=== PATIENT | female | born 1990 | race Caucasian/White ===

== ENCOUNTER 2016-09-28 20:09 | Emergency (ER) | payer SELFPAY ==
--- NOTE | 2016-09-28 20:27 | ED CLINICAL REPORT ---
Clinical Report - Physicians/Mid Levels [facility] [address] [place] [address] 09/28/2016 20:10 Patient: JAILYN ORTA Time Seen: 2029Sep 28 2016. Arrived- By private vehicle. Historian- patient. HISTORY OF PRESENT ILLNESS Chief Complaint: Injury to the right and left hand. The injury happened 7 days. ( Patient reports a rash off and on over the last 7 days, wears gloves, and is unsure if the rash is from such, has has history of similar, does wear latex at work. Rash worsens massage. Hasn't taken any Benadryl anything [id number]. Burn sensation). REVIEW OF SYSTEMS No skin laceration. All systems otherwise negative, except as recorded above. PAST HISTORY The patient's dominant hand is the right. She has not had a prior injury to the same area. SOCIAL HISTORY Never smoker. ADDITIONAL NOTES The nursing notes have been reviewed. PHYSICAL EXAM Vital Signs: 09/28/2016 20:26 BP: 135/88. HR: 102. RR: 16. O2 saturation: 100%. Temp: 97.8 F. Pain level now: 5/10. Appearance: Alert. No acute distress. Head: Head atraumatic. CVS: Normal heart rate and rhythm. Heart sounds normal. Respiratory: No respiratory distress. Breath sounds normal. Skin: Skin warm. Extremities: (dorsal small area of erythema, no swelling, overlying proximal aspect . full rom, no interdigit rash.). No wrist injury. Neuro, Vascular and Tendons: Vascular status intact. Motor intact. Neuro: Oriented X 3. PROGRESS AND PROCEDURES Course of Care: Contact dermatitis, less likely scabies. Pt stable. Pt to f/u outpatient. No signs of infectious process. Full rom. Patient is stable. Patient/family counseled. Disposition: Discharged. CLINICAL IMPRESSION Allergic and irritative contact dermatitis (b/l dorsal hands). INSTRUCTIONS Return to work tomorrow. (take antihistamine such as benadryl/ zyrtec/ claritin as needed avoid gloves, but otherwise may work). Prescription Medications: Hydrocortisone 0.5% cream: apply to affected areas three times daily for 1 week, as needed for itching, until symptoms improve. Dispense thirty (30) grams. No refills. Substitution is permissible. OTC Medications: Take Benadryl according to label instructions. Available over the counter. (50 mg po q 6 hours, x 15) (Electronically signed by Palak Avendano P.A.-C 09/28/2016 21:03)
--- NOTE | 2016-09-28 20:27 | ED CLINICAL REPORT ---
Clinical Report - Physicians/Mid Levels [facility] [address] [place] [address] 09/28/2016 20:10 Patient: JAILYN ORTA Time Seen: 2029Sep 28 2016. Arrived- By private vehicle. Historian- patient. HISTORY OF PRESENT ILLNESS Chief Complaint: Injury to the right and left hand. The injury happened 7 days. ( Patient reports a rash off and on over the last 7 days, wears gloves, and is unsure if the rash is from such, has has history of similar, does wear latex at work. Rash worsens massage. Hasn't taken any Benadryl anything [id number]. Burn sensation). REVIEW OF SYSTEMS No skin laceration. All systems otherwise negative, except as recorded above. PAST HISTORY The patient's dominant hand is the right. She has not had a prior injury to the same area. SOCIAL HISTORY Never smoker. ADDITIONAL NOTES The nursing notes have been reviewed. PHYSICAL EXAM Vital Signs: 09/28/2016 20:26 BP: 135/88. HR: 102. RR: 16. O2 saturation: 100%. Temp: 97.8 F. Pain level now: 5/10. Appearance: Alert. No acute distress. Head: Head atraumatic. CVS: Normal heart rate and rhythm. Heart sounds normal. Respiratory: No respiratory distress. Breath sounds normal. Skin: Skin warm. Extremities: (dorsal small area of erythema, no swelling, overlying proximal aspect . full rom, no interdigit rash.). No wrist injury. Neuro, Vascular and Tendons: Vascular status intact. Motor intact. Neuro: Oriented X 3. PROGRESS AND PROCEDURES Course of Care: Contact dermatitis, less likely scabies. Pt stable. Pt to f/u outpatient. No signs of infectious process. Full rom. Patient is stable. Patient/family counseled. Disposition: Discharged. CLINICAL IMPRESSION Allergic and irritative contact dermatitis (b/l dorsal hands). INSTRUCTIONS Return to work tomorrow. (take antihistamine such as benadryl/ zyrtec/ claritin as needed avoid gloves, but otherwise may work). Prescription Medications: Hydrocortisone 0.5% cream: apply to affected areas three times daily for 1 week, as needed for itching, until symptoms improve. Dispense thirty (30) grams. No refills. Substitution is permissible. OTC Medications: Take Benadryl according to label instructions. Available over the counter. (50 mg po q 6 hours, x 15) (Electronically signed by Palak Avendano P.A.-C 09/28/2016 21:03)
--- NOTE | 2016-09-28 21:03 | ED MAR SUMMARY ---
..... Medication Administration Record [facility] [address] [place], [place] [id number] Patient: JAILYN ORTA Robert Visit ID: [id number] 26y, F Weight: 88.4 kg Height/Length: 72 in BMI: 26.5 ALLERGIES: No Known Drug Allergy
--- NOTE | 2016-09-28 21:03 | ED MAR SUMMARY ---
..... Medication Administration Record [facility] [address] [place], [place] [id number] Patient: JAILYN ORTA Robert Visit ID: [id number] 26y, F Weight: 88.4 kg Height/Length: 72 in BMI: 26.5 ALLERGIES: No Known Drug Allergy
--- NOTE | 2016-09-28 21:03 | ED DISCHARGE INSTRUCTIONS ---
Patient: JAILYN ORTA General Instructions [facility] VisitID: [id number] [place] [address] 26y, F Registration Date/Time: 09/28/2016 Allergic and irritative contact dermatitis (b/l dorsal hands). INSTRUCTIONS Return to work tomorrow. (take antihistamine such as benadryl/ zyrtec/ claritin as needed avoid gloves, but otherwise may work). Prescription Medications: Hydrocortisone 0.5% cream: apply to affected areas three times daily for 1 week, as needed for itching, until symptoms improve. Dispense thirty (30) grams. No refills. Substitution is permissible. OTC Medications: Take Benadryl according to label instructions. Available over the counter. (50 mg po q 6 hours, x 15) ADDITIONAL INFORMATION Dermatitis (Non-Specific) Dermatitis is an inflammation of the skin. The exact cause of your rash is not certain. However, this rash does not appear to be an infection or contagious illness. Taking care of the rash at home should help relieve your symptoms. Home Care: Keep the areas of rash clean by washing it daily. This also helps to keep the skin moist. Use a neutral pH soap such as Dove or Lever 2000. Apply a moisturizing lotion after bathing to prevent dry skin. Avoid skin irritants (wool or silk clothing, grease, oils, some medicines, harsh soaps, and detergents). Wear absorbent, soft fabrics next to the skin rather than rough or scratchy materials. Unless another medicine was prescribed, you may use Hydrocortisone cream (which you can get without a prescription) to reduce the inflammation. Follow Up: Make an appointment with your doctor in the next 1 to 2 weeks if your symptoms do not improve with the above measures. Get Prompt Medical Attention if any of the following occur: Increasing area of redness or pain in the skin Yellow crusts or drainage from the rash Joint pain New rash that appears in other areas of the body Fever of 100.4F (38C) or higher, or as directed by your healthcare provider You have been given the following additional information: Dermatitis, Non-Specific Return to work tomorrow. (Electronically signed by Palak Avendano P.A.-C 09/28/2016 21:03)
--- NOTE | 2016-09-28 21:03 | ED DISCHARGE INSTRUCTIONS ---
Patient: JAILYN ORTA General Instructions [facility] VisitID: [id number] [place] [address] 26y, F Registration Date/Time: 09/28/2016 Allergic and irritative contact dermatitis (b/l dorsal hands). INSTRUCTIONS Return to work tomorrow. (take antihistamine such as benadryl/ zyrtec/ claritin as needed avoid gloves, but otherwise may work). Prescription Medications: Hydrocortisone 0.5% cream: apply to affected areas three times daily for 1 week, as needed for itching, until symptoms improve. Dispense thirty (30) grams. No refills. Substitution is permissible. OTC Medications: Take Benadryl according to label instructions. Available over the counter. (50 mg po q 6 hours, x 15) ADDITIONAL INFORMATION Dermatitis (Non-Specific) Dermatitis is an inflammation of the skin. The exact cause of your rash is not certain. However, this rash does not appear to be an infection or contagious illness. Taking care of the rash at home should help relieve your symptoms. Home Care: Keep the areas of rash clean by washing it daily. This also helps to keep the skin moist. Use a neutral pH soap such as Dove or Lever 2000. Apply a moisturizing lotion after bathing to prevent dry skin. Avoid skin irritants (wool or silk clothing, grease, oils, some medicines, harsh soaps, and detergents). Wear absorbent, soft fabrics next to the skin rather than rough or scratchy materials. Unless another medicine was prescribed, you may use Hydrocortisone cream (which you can get without a prescription) to reduce the inflammation. Follow Up: Make an appointment with your doctor in the next 1 to 2 weeks if your symptoms do not improve with the above measures. Get Prompt Medical Attention if any of the following occur: Increasing area of redness or pain in the skin Yellow crusts or drainage from the rash Joint pain New rash that appears in other areas of the body Fever of 100.4F (38C) or higher, or as directed by your healthcare provider You have been given the following additional information: Dermatitis, Non-Specific Return to work tomorrow. (Electronically signed by Palak Avendano P.A.-C 09/28/2016 21:03)
--- NOTE | 2016-09-28 21:03 | ED MED RECONCILIATION SUMMARY ---
Patient: JAILYN ORTA Medication Reconciliation Report [facility] VisitID: [id number] [place] [address] 26y, F Registration Date/Time: 09/28/2016 Weight: 88.4 kg Height/Length: 72 in. BMI: 26.5 ALLERGIES: No Known Drug Allergy The patient's Home Medications are listed below: NONE. The source(s) of the original Home Medication information: Not obtained. The following Medications were given to the patient in the Emergency Department: None. The following Medications were prescribed to the patient: Take Benadryl according to label instructions. Available over the counter.(50 mg po q 6 hours, x 15) -- Palak Avendano, P.A.-C Hydrocortisone 0.5% cream: apply to affected areas three times daily for 1 week, as needed for itching, until symptoms improve. Dispense thirty (30) grams. No refills. Substitution is permissible. -- Palak Avendano, P.A.-C
--- NOTE | 2016-09-28 21:03 | ED NURSING NOTES ---
Clinical Report - Nurses Located Within [facility] [address] [place] [address] 09/28/2016 20:10 Patient: JAILYN ORTA TRIAGE Triage time 2025 PM. Chief Complaint: SKIN RASH. Alert. No acute distress. --20:31 Chadwick Black R.N. 20:26 09/28/16. BP: 135/88. HR: 102. RR: 16. O2 saturation: 100%. Temp: 97.8 F (oral). Pain level now: 01/06. --20:31 Chadwick Black R.N. Weight: 88.4 kg stated. Height/Length: 72 inches Per Patient. BMI: 26.5. --20:30 Chadwick Black R.N. Medications None. --20:29 Chadwick Black R.N. Allergies No Known Drug Allergy. --20:29 Chadwick Black R.N. History Arrived by private vehicle. Historian: patient. Accompanied by family. Reported as located on the right hand and left hand. It is described as itchy, burning and painful. ( Patient presents to the ED with symptoms of a rash to bilateral hands. Patient states that she does not know what substance she may be causing the reaction. Patient states that she wears vinyl gloves at [employer] and wears latex gloves at [place].). PAST MEDICAL HX: Immunizations: up-to-date. Last normal menstrual period was 3 weeks ago. Denies current . SOCIAL HX: Never smoker. Occasional alcohol use. History of drug use. (no). FALL RISK ASSESSMENT: Fall risk assessment completed. No fall risk identified. NUTRITIONAL RISK ASSESSMENT: The nutritional risk assessment revealed no deficiencies. FUNCTIONAL ASSESSMENT: Functional assessment: no impairments noted. LEARNING NEEDS ASSESSMENT: The learning needs assessment revealed no barriers. SKIN INTEGRITY ASSESSMENT: Skin integrity risk assessment completed. No skin integrity risk identified. --20:31 Chadwick Black R.N. PROBLEMS: no known problems. ADDITIONAL SURGERIES: no known surgeries. Interventions ID band on patient. To treatment room. --20:31 Chadwick Black R.N. PHYSICAL ASSESSMENT Ambulatory to room. GENERAL / NEURO / PSYCH: Alert. The patient does not appear to be in acute distress. Oriented X 4. HEENT: Pupils equal, round and reactive to light. RESPIRATORY: Respirations not labored. Breath sounds within normal limits. CVS: Capillary refill less than 2 seconds. Pulses within normal limits. GI / : Abdomen nontender. SKIN: Skin is warm, dry and non-tender. Skin rash on the right hand and left hand. Urticaria present. Normal skin turgor. --20:33 Chadwick Black R.N. NURSING PROGRESS NOTES Call light placed in reach. Side rails up x 1. Bed placed in lowest position. Brakes of bed on. --20:37 Chadwick Black R.N. DISPOSITION / DISCHARGE Condition at departure: improved. The goals identified in the patient's plan of care were met. No learning barriers present. Reviewed medication(s) side effects, precautions, dosing and course information. Prescription(s) given to the patient. Patient verbalized understanding. Written instructions provided in Indonesian. The patient was discharged home and accompanied by spouse. She left the Emergency Department ambulatory and via private vehicle. Spouse driving. FALL RISK ASSESSMENT: Fall risk assessment completed. No fall risk identified. --20:37 Chadwick Black R.N. Departure time: 2036 PM. --20:37 Chadwick Black R.N. Locked/Released at 09/28/2016 20:38 by Chadwick Black R.N.
--- NOTE | 2016-09-28 21:03 | ED NURSING NOTES ---
Clinical Report - Nurses [facility] [address] [place] [address] 09/28/2016 20:10 Patient: JAILYN ORTA TRIAGE Triage time 2025 PM. Chief Complaint: SKIN RASH. Alert. No acute distress. --20:31 Chadwick Black R.N. 20:26 09/28/16. BP: 135/88. HR: 102. RR: 16. O2 saturation: 100%. Temp: 97.8 F (oral). Pain level now: 01/06. --20:31 Chadwick Black R.N. Weight: 88.4 kg stated. Height/Length: 72 inches Per Patient. BMI: 26.5. --20:30 Chadwick Black R.N. Medications None. --20:29 Chadwick Black R.N. Allergies No Known Drug Allergy. --20:29 Chadwick Black R.N. History Arrived by private vehicle. Historian: patient. Accompanied by family. Reported as located on the right hand and left hand. It is described as itchy, burning and painful. ( Patient presents to the ED with symptoms of a rash to bilateral hands. Patient states that she does not know what substance she may be causing the reaction. Patient states that she wears vinyl gloves at [facility] [employer] [place] and wears latex gloves at [place].). PAST MEDICAL HX: Immunizations: up-to-date. Last normal menstrual period was 3 weeks ago. Denies current . SOCIAL HX: Never smoker. Occasional alcohol use. History of drug use. (no). FALL RISK ASSESSMENT: Fall risk assessment completed. No fall risk identified. NUTRITIONAL RISK ASSESSMENT: The nutritional risk assessment revealed no deficiencies. FUNCTIONAL ASSESSMENT: Functional assessment: no impairments noted. LEARNING NEEDS ASSESSMENT: The learning needs assessment revealed no barriers. SKIN INTEGRITY ASSESSMENT: Skin integrity risk assessment completed. No skin integrity risk identified. --20:31 Chadwick Black R.N. PROBLEMS: no known problems. ADDITIONAL SURGERIES: no known surgeries. Interventions ID band on patient. To treatment room. --20:31 Chadwick Balck R.N. PHYSICAL ASSESSMENT Ambulatory to room. GENERAL / NEURO / PSYCH: Alert. The patient does not appear to be in acute distress. Oriented X 4. HEENT: Pupils equal, round and reactive to light. RESPIRATORY: Respirations not labored. Breath sounds within normal limits. CVS: Capillary refill less than 2 seconds. Pulses within normal limits. GI / : Abdomen nontender. SKIN: Skin is warm, dry and non-tender. Skin rash on the right hand and left hand. Urticaria present. Normal skin turgor. --20:33 Chadwick Black R.N. NURSING PROGRESS NOTES Call light placed in reach. Side rails up x 1. Bed placed in lowest position. Brakes of bed on. --20:37 Chadwick Black R.N. DISPOSITION / DISCHARGE Condition at departure: improved. The goals identified in the patient's plan of care were met. No learning barriers present. Reviewed medication(s) side effects, precautions, dosing and course information. Prescription(s) given to the patient. Patient verbalized understanding. Written instructions provided in Uzbek. The patient was discharged home and accompanied by spouse. She left the Emergency Department ambulatory and via private vehicle. Spouse driving. FALL RISK ASSESSMENT: Fall risk assessment completed. No fall risk identified. --20:37 Chadwick Black R.N. Departure time: 2036 PM. --20:37 Chadwick Black R.N. Locked/Released at 09/28/2016 20:38 by Chadwick Black R.N.
--- NOTE | 2016-09-28 21:03 | ED MED RECONCILIATION SUMMARY ---
Patient: JAILYN ORTA Medication Reconciliation Report [facility] VisitID: [id number] [place] [address] 26y, F Registration Date/Time: 09/28/2016 Weight: 88.4 kg Height/Length: 72 in. BMI: 26.5 ALLERGIES: No Known Drug Allergy The patient's Home Medications are listed below: NONE. The source(s) of the original Home Medication information: Not obtained. The following Medications were given to the patient in the Emergency Department: None. The following Medications were prescribed to the patient: Take Benadryl according to label instructions. Available over the counter.(50 mg po q 6 hours, x 15) -- Palak Avendano, P.A.-C Hydrocortisone 0.5% cream: apply to affected areas three times daily for 1 week, as needed for itching, until symptoms improve. Dispense thirty (30) grams. No refills. Substitution is permissible. -- Palak Avendano, P.A.-C
== END 2016-09-28 20:36 | disposition home or self-care (01) ==
LOC: ED SRH 20:09
DX: L23.9 Allergic contact dermatitis, unspecified cause (principal); L24.9 Irritant contact dermatitis, unspecified cause

== ENCOUNTER 2016-10-16 18:27 | Emergency (ER) | payer SELFPAY ==
--- NOTE | 2016-10-16 19:10 | ED ORDER SUMMARY ---
..... Patient: JAILYN ORTA [facility] VisitID: [id number] [address] [place] [address] 26y, F Registration Date/Time: 10/16/2016 ORDER SHEET Weight: 88.4 kg (stated) Allergies: "a cough suppressant" GENERAL ORDERS: MEDICATION ORDERS: Toradol IM 60 mg (NOW) (19:03 10/16/2016 JCoates) (19:14 LSullivan R.N.) Lortab PO 5-325 mg (NOW) (19:03 10/16/2016 JCoates) (19:14 LSullivan R.N.) IV FLUIDS: ORDER SHEET NOTES: [Electronically signed by Jeromy Slater (00:25 10/17/2016)] [Electronically signed by Bo Jc R.N. (03:37 10/17/2016)] [Electronically locked/signed by Bo Jc R.N. (03:37 10/17/2016)]
--- NOTE | 2016-10-16 19:10 | ED ORDER SUMMARY ---
..... Patient: JAILYN ROTA OrderSheet [facility] VisitID: [id number] [address] [place] [place] [address] 26y, F Registration Date/Time: 10/16/2016 ORDER SHEET Weight: 88.4 kg (stated) Allergies: "a cough suppressant" GENERAL ORDERS: MEDICATION ORDERS: Toradol IM 60 mg (NOW) (19:03 10/16/2016 JCoates) (19:14 LSullivan R.N.) Lortab PO 5-325 mg (NOW) (19:03 10/16/2016 JCoates) (19:14 LSullivan R.N.) IV FLUIDS: ORDER SHEET NOTES: [Electronically signed by Jeromy Slater (00:25 10/17/2016)] [Electronically signed by Bo Jc R.N. (03:37 10/17/2016)] [Electronically locked/signed by Bo Jc R.N. (03:37 10/17/2016)]
--- NOTE | 2016-10-16 19:10 | ED NURSING NOTES ---
Clinical Report - Nurses [facility] [address] [place] [address] 10/16/2016 18:27 Patient: JAILYN ORTA TRIAGE Triage time 18:34. Acuity: LEVEL 4. 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 Pt states she did not pass out at work.). Alert. No acute distress. --18:41 Leeann Lutz R.N. 18:34 10/16/16. BP: 111/79. HR: 76. RR: 18. O2 saturation: 99%. Temp: 98.2 F. Pain level now: 04/08. --18:41 Leeann Lutz R.N. Weight: 88.4 kg stated. Height/Length: 72 inches Per Patient. BMI: 26.5. --18:36 Leeann Lutz R.N. Medications None. --18:40 Leeann Lutz R.N. Allergies "a cough suppressant". --18:41 Leeann Lutz R.N. History Arrived by EMS, and (A65). Historian: EMS and patient. Primary physician (none). This started today. 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 PAST MEDICAL HX: Immunizations: up-to-date. Last normal menstrual period- continuous spotting, hasn't stopped for a long time. Denies current . SOCIAL HX: Never smoker. Occasional alcohol use. No drug use. SELF HARM ASSESSMENT: A self harm assessment was performed. The patient answered "no" to the question "Do you have thoughts of harming or killing yourself?". NUTRITIONAL RISK ASSESSMENT: The nutritional risk assessment revealed no deficiencies. FUNCTIONAL ASSESSMENT: Functional assessment: no impairments noted. ABUSE ASSESSMENT: Abuse assessment: ("YES") The patient was asked "Do you feel safe in your home?". --18:41 Leeann Lutz R.N. PROBLEMS: Contact Dermatitis. --18:38 Leeann Lutz R.N. Hypoglycemia. Anemia. --18:39 Leeann Lutz R.N. ADDITIONAL SURGERIES: Dental Surgery. --18:39 Leeann Lutz R.N. Interventions ID band on patient. To room. --18:41 Leeann Lutz R.N. PHYSICAL ASSESSMENT 18:41 10/16/16. GENERAL / NEURO / PSYCH: Alert. Oriented X 4. Appears in no acute distress. --18:41 Leeann uLtz R.N. NURSING PROGRESS NOTES 18:41 10/16/16. Patient identifiers checked. Call light placed in reach. Bed placed in lowest position. Brakes of bed on. Patient ready for evaluation- chart flagged. --18:41 Leeann Lutz R.N. 18:42 10/16/16. ( Pt states she has not had vomiting for 2 weeks.). --18:42 Leeann Lutz R.N. 19:14 10/16/2016 Toradol (Ketorolac Tromethamine) IM 60 mg given. Given in the right gluteus latoya. Allergies verified and confirmed 5 rights. --19:14 Leeann Lutz R.N. 19:14 10/16/2016 Lortab (Hydrocodone-APAP) PO 5/325 mg Tablets 1 tab given. Confirmed 5 rights. --19:14 Leeann Lutz R.N. DISPOSITION / DISCHARGE Departure time: 19:20. Condition at departure: improved. ( Vital signs deferred.). No learning barriers present. Discharge instructions provided and reviewed with the patient. Reviewed medication(s). Reviewed referral to family practice for followup (Pt instructed to find a PCP to get established with.). Verbalized understanding. Written instructions provided. The patient was discharged home and accompanied by Pt to call for a ride in [facility]. She left the Emergency Department ambulatory and via private vehicle. --19:20 Leeann Lutz R.N. Locked/Released at 10/17/2016 3:37 by Bo Jc R.N.
--- NOTE | 2016-10-16 19:10 | ED CLINICAL REPORT ---
Clinical Report - Physicians/Mid Levels [facility] [address] [place] [address] 10/16/2016 18:27 Patient: JAILYN ORTA Time Seen: 19:02 Oct 16 2016. Arrived- By private vehicle. Historian- patient. HISTORY OF PRESENT ILLNESS Chief Complaint: COUGH, SORE THROAT, SINUS PAIN and FEVER. This started about 3 days ago But worse today when she went to work. The illness is described as moderate. The patient has had a cough, a sore throat, fever, chills and muscle aches. She has had a nasal discharge. No difficulty breathing. (Patient says she is not sure why she is here as she doesn't feel that sick. She came in because her boss called the EMS.). Additional history - The patient has had contact with a sick individual. Similar symptoms previously: None. Recent medical care: Not recently seen/assessed. REVIEW OF SYSTEMS The patient has had a headache. No nausea, vomiting, diarrhea, pedal edema or difficulty with urination. No skin rash. All systems otherwise negative, except as recorded above. PAST HISTORY See nurses notes. No history of heart disease or lung disease. SOCIAL HISTORY Never smoker. No drug use. ADDITIONAL NOTES The nursing notes have been reviewed. PHYSICAL EXAM Appearance: Alert. No acute distress. Eyes: Pupils equal, round and reactive to light. Eyes normal inspection. ENT: Ears normal. Nose normal. Pharynx normal. Uvula midline. Neck: Normal inspection. Neck supple. CVS: Normal heart rate and rhythm. Heart sounds normal. Respiratory: No respiratory distress. Breath sounds normal. Back: Normal inspection. No CVA tenderness. Skin: Skin warm and dry. Normal skin color. No rash. Normal skin turgor. Extremities: Extremities exhibit normal ROM. No lower extremity edema. Neuro: Oriented X 3. No motor deficit. No sensory deficit. PROGRESS AND PROCEDURES Course of Care: Patient has a very benign exam. We'll treat for viral URI/influenza. She says her symptoms only recently started although she was sick several weeks ago and had a period of wellness between.. Disposition: Discharged in good condition. CLINICAL IMPRESSION Acute viral upper respiratory infection. Tension-type headache. INSTRUCTIONS Take Tylenol (Acetaminophen) or Motrin (Ibuprofen) as needed for fever control. Take medication according to label instructions. Rest. Do not work for three days. Drink plenty of fluids. No dietary restrictions. Warnings: SEDATIVE MEDICATION: You were given sedative medication during your visit. Do not drive or operate dangerous machinery for 12 hours. GENERAL WARNINGS: Return or contact your physician immediately if your condition worsens or changes unexpectedly, if not improving as expected, or if other problems arise. Specifically return if vomiting or fever greater than 102 degrees F and not controlled. Prescription Medications: Tylenol with Codeine Tylenol #3 (30 mg / 300 mg) : take 1 tablet orally. Dispense five (5). No refill. Substitution is permissible. (PO at HS PRN for cough and body aches.) OTC Medications: Motrin IB 200 mg (available over the counter): take 3 orally every 6 hours as needed for pain Mucinex (available over the counter): 600 mg tablet: take 1 tablet orally every 12 hours for 7 days. Dispense fifteen (15). No refill. Follow-up: Follow up with your doctor in four if not better. Understanding of the discharge instructions verbalized by patient. (Electronically signed by Jeromy Slater, 10/17/2016 0:25)
--- NOTE | 2016-10-16 19:10 | ED NURSING NOTES ---
Clinical Report - Nurses [facility] [address] [place] [address] 10/16/2016 18:27 Patient: JAILYN ORTA TRIAGE Triage time 18:34. Acuity: LEVEL 4. 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 Pt states she did not pass out at work.). Alert. No acute distress. --18:41 Leeann Lutz R.N. 18:34 10/16/16. BP: 111/79. HR: 76. RR: 18. O2 saturation: 99%. Temp: 98.2 F. Pain level now: 04/08. --18:41 Leeann Lutz R.N. Weight: 88.4 kg stated. Height/Length: 72 inches Per Patient. BMI: 26.5. --18:36 Leeann Lutz R.N. Medications None. --18:40 Leeann Lutz R.N. Allergies "a cough suppressant". --18:41 Leeann Lutz R.N. History Arrived by EMS, and (A65). Historian: EMS and patient. Primary physician (none). This started today. Treatment STOGY MAKER: (Mucinex and Dayquil at 11am). PAST MEDICAL HX: Immunizations: up-to-date. Last normal menstrual period- continuous spotting, hasn't stopped for a long time. Denies current . SOCIAL HX: Never smoker. Occasional alcohol use. No drug use. SELF HARM ASSESSMENT: A self harm assessment was performed. The patient answered "no" to the question "Do you have thoughts of harming or killing yourself?". NUTRITIONAL RISK ASSESSMENT: The nutritional risk assessment revealed no deficiencies. FUNCTIONAL ASSESSMENT: Functional assessment: no impairments noted. ABUSE ASSESSMENT: Abuse assessment: ("YES") The patient was asked "Do you feel safe in your home?". --18:41 Leeann Lutz R.N. PROBLEMS: Contact Dermatitis. --18:38 Leeann Lutz R.N. Hypoglycemia. Anemia. --18:39 Leeann Lutz R.N. ADDITIONAL SURGERIES: Dental Surgery. --18:39 Leeann Lutz R.N. Interventions ID band on patient. To room. --18:41 Leeann Lutz R.N. PHYSICAL ASSESSMENT 18:41 10/16/16. GENERAL / NEURO / PSYCH: Alert. Oriented X 4. Appears in no acute distress. --18:41 Leeann Lutz R.N. NURSING PROGRESS NOTES 18:41 10/16/16. Patient identifiers checked. Call light placed in reach. Bed placed in lowest position. Brakes of bed on. Patient ready for evaluation- chart flagged. --18:41 Leeann Lutz R.N. 18:42 10/16/16. ( Pt states she has not had vomiting for 2 weeks.). --18:42 Leeann Lutz R.N. 19:14 10/16/2016 Toradol (Ketorolac Tromethamine) IM 60 mg given. Given in the right gluteus latoya. Allergies verified and confirmed 5 rights. --19:14 Leeann Lutz R.N. 19:14 10/16/2016 Lortab (Hydrocodone-APAP) PO 5/325 mg Tablets 1 tab given. Confirmed 5 rights. --19:14 Leeann Lutz R.N. DISPOSITION / DISCHARGE Departure time: 19:20. Condition at departure: improved. ( Vital signs deferred.). No learning barriers present. Discharge instructions provided and reviewed with the patient. Reviewed medication(s). Reviewed referral to family practice for followup (Pt instructed to find a PCP to get established with.). Verbalized understanding. Written instructions provided. The patient was discharged home and accompanied by Pt to call for a ride in [facility]. She left the Emergency Department ambulatory and via private vehicle. --19:20 Leeann Lutz R.N. Locked/Released at 10/17/2016 3:37 by Bo Jc R.N.
--- NOTE | 2016-10-17 03:38 | ED DISCHARGE INSTRUCTIONS ---
Patient: JAILYN ORTA General Instructions [facility] VisitID: [id number] [place] [address] 26y, F Registration Date/Time: 10/16/2016 Acute viral upper respiratory infection. Tension-type headache. INSTRUCTIONS Take Tylenol (Acetaminophen) or Motrin (Ibuprofen) as needed for fever control. Take medication according to label instructions. Rest. Do not work for three days. Drink plenty of fluids. No dietary restrictions. Warnings: SEDATIVE MEDICATION: You were given sedative medication during your visit. Do not drive or operate dangerous machinery for 12 hours. GENERAL WARNINGS: Return or contact your physician immediately if your condition worsens or changes unexpectedly, if not improving as expected, or if other problems arise. Specifically return if vomiting or fever greater than 102 degrees F and not controlled. Prescription Medications: Tylenol with Codeine Tylenol #3 (30 mg / 300 mg) : take 1 tablet orally. Dispense five (5). No refill. Substitution is permissible. (PO at HS PRN for cough and body aches.) OTC Medications: Motrin IB 200 mg (available over the counter): take 3 orally every 6 hours as needed for pain Mucinex (available over the counter): 600 mg tablet: take 1 tablet orally every 12 hours for 7 days. Dispense fifteen (15). No refill. Follow-up: Follow up with your doctor in four if not better. Understanding of the discharge instructions verbalized by patient. ADDITIONAL INFORMATION Tension Headache Muscle Tension Headache (also called "stress headache") is a very common cause of head pain. Under stress, some people tense the muscles of their shoulder, neck and scalp without knowing it. If this lasts long enough, a headache can occur. These headaches can be very painful and last for hours or even days. Home Care: If you were given pain medicine for this headache, do not drive yourself home. Arrange for a ride, instead. When you get home, try to sleep. You should feel much better when you wake up. Heat to the back of your neck may relieve neck spasm. Drink only clear liquids or eat a very light diet to avoid nausea/vomiting until symptoms improve. Preventing Future Headaches Identify the sources of stress in your life. These may not be obvious! Learn new ways to handle your stress, such as regular exercise, biofeedback, self-hypnosis and meditation. For more information about this, consult your doctor or go to a local bookstore and review the many books and tapes on this subject. At the first sign of a tension headache, take time out if possible. Remove yourself from the stressful situation, find a quiet comfortable place to sit or lie down and let yourself relax. Heat and deep massage of the tight areas in the neck and shoulders may help reduce muscle spasm. Medicine, such as ibuprofen (Advil or Motrin) or a prescribed muscle relaxant may be helpful at this point. Follow Up with your doctor if the headache is not better within the next 24 hours. If you have frequent headaches you should discuss a treatment plan with your primary care doctor. Ask if you can have medicine to take at home the next time you get a bad headache. This may avoid the need for a visit to the emergency department in the future. Poorly controlled chronic headaches may require a referral to a neurologist (headache specialist). Get Prompt Medical Attention if any of the following occur: Worsening of your head pain or no improvement within 24 hours Repeated vomiting (unable to keep liquids down) Fever of 100.4F (38C) or higher, or as directed by your healthcare provider Stiff neck Extreme drowsiness, confusion or fainting Dizziness, vertigo (dizziness with spinning sensation) Weakness of an arm or leg or one side of the face Difficulty with speech or vision Ibuprofen Oral tablet What is this medicine? IBUPROFEN (eye BYOO proe fen) is a non-steroidal anti-inflammatory drug (NSAID). It is used for dental pain, fever, headaches or migraines, osteoarthritis, rheumatoid arthritis, or painful monthly periods. It can also relieve minor aches and pains caused by a cold, flu, or sore throat. How should I use this medicine? Take this medicine by mouth with a glass of water. Follow the directions on the prescription label. Take this medicine with food if your stomach gets upset. Try to not lie down for at least 10 minutes after you take the medicine. Take your medicine at regular intervals. Do not take your medicine more often than directed. A special MedGuide will be given to you by the pharmacist with each prescription and refill. Be sure to read this information carefully each time. Talk to your marketing project lead regarding the use of this medicine in children. Special care may be needed. What side effects may I notice from receiving this medicine? Side effects that you should report to your doctor or health manager medicare marketing as soon as possible: allergic reactions like skin rash, itching or hives, swelling of the face, lips, or tongue black or bloody stools, blood in the urine or in vomit breathing problems changes in vision chest pain general ill feeling or flu-like symptoms nausea or vomiting redness, blistering, peeling or loosening of the skin, including inside the mouth slurred speech or weakness on one side of the body stomach pain unexplained weight gain or swelling unusually weak or tired yellowing of eyes or skin Side effects that usually do not require medical attention (report to your doctor or health manager medicare marketing if they continue or are bothersome): constipation or diarrhea dizziness gas or heartburn stomach upset What may interact with this medicine? Do not take this medicine with any of the following medications: cidofovir ketorolac methotrexate pemetrexed This medicine may also interact with the following medications: alcohol aspirin diuretics lithium other drugs for inflammation like prednisone warfarin What if I miss a dose? If you miss a dose, take it as soon as you can. If it is almost time for your next dose, take only that dose. Do not take double or extra doses. Where should I keep my medicine? Keep out of the reach of children. Store at room temperature between 15 and 30 degrees C (59 and 86 degrees F). Keep container tightly closed. Throw away any unused medicine after the expiration date. What should I tell my health care provider before I take this medicine? They need to know if you have any of these conditions: asthma cigarette smoker drink more than 3 alcohol containing drinks a day heart disease or circulation problems such as heart failure or leg edema (fluid retention) high blood pressure kidney disease liver disease stomach bleeding or ulcers an unusual or allergic reaction to ibuprofen, aspirin, other NSAIDS, other medicines, foods, dyes, or preservatives or trying to get breast-feeding What should I watch for while using this medicine? Tell your doctor or healthcare professional if your symptoms do not start to get better or if they get worse. This medicine does not prevent heart attack or stroke. In fact, this medicine may increase the chance of a heart attack or stroke. The chance may increase with longer use of this medicine and in people who have heart disease. If you take aspirin to prevent heart attack or stroke, talk with your doctor or health manager medicare marketing. Do not take other medicines that contain aspirin, ibuprofen, or naproxen with this medicine. Side effects such as stomach upset, nausea, or ulcers may be more likely to occur. Many medicines available without a prescription should not be taken with this medicine. This medicine can cause ulcers and bleeding in the stomach and intestines at any time during treatment. Ulcers and bleeding can happen without warning symptoms and can cause . To reduce your risk, do not smoke cigarettes or drink alcohol while you are taking this medicine. You may get drowsy or dizzy. Do not drive, use machinery, or do anything that needs mental alertness until you know how this medicine affects you. Do not stand or sit up quickly, especially if you are an older patient. This reduces the risk of dizzy or fainting spells. This medicine can cause you to bleed more easily. Try to avoid damage to your teeth and gums when you brush or floss your teeth. You have been given the following additional information: Headache, Tension Ibuprofen Oral tablet Rest. Do not work for three days. (Electronically signed by Jeromy Slater, 10/17/2016 0:25)
--- NOTE | 2016-10-17 03:38 | ED MAR SUMMARY ---
..... Medication Administration Record [facility] [address] [place] [address] Patient: JAILYN ORTA Visit ID: [id number] 26y, F Weight: 88.4 kg Height/Length: 72 in BMI: 26.5 ALLERGIES: "a cough suppressant" Given 19:10/16/2016 Leeann Lutz, RCatrachoN. Medication Administered: TORADOL [IM] (KETOROLAC TROMETHAMINE), Dose: 60 mg IM. Medication Ordered: Toradol IM 60 mg (NOW). Given 19:10/16/2016 Leeann Lutz, R.N. Medication Administered: LORTAB [PO] (HYDROCODONE-APAP), Dose: 1 tab 5/325 mg Tablets PO. Medication Ordered: Lortab PO 5-325 mg (NOW).
--- NOTE | 2016-10-17 03:38 | ED MED RECONCILIATION SUMMARY ---
Patient: JAILYN ORTA Medication Reconciliation Report [facility] VisitID: [id number] [address] [place] [address] 26y, F Registration Date/Time: 10/16/2016 Weight: 88.4 kg Height/Length: 72 in. BMI: 26.5 ALLERGIES: "a cough suppressant" The patient's Home Medications are listed below: NONE. The source(s) of the original Home Medication information: Not obtained. The following Medications were given to the patient in the Emergency Department: Toradol [IM] IM 60 mg, administered: 10/16/2016 7:14:00 PM Lortab [PO] PO 1 tab, administered: 10/16/2016 7:14:00 PM The following Medications were prescribed to the patient: Motrin IB 200 mg (available over the counter): take 3 orally every 6 hours as needed for pain -- Jeromy Slater Tylenol with Codeine Tylenol #3 (30 mg / 300 mg) : take 1 tablet orally. Dispense five (5). No refill. Substitution is permissible.(PO at HS PRN for cough and body aches.) -- Jeromy Slater Mucinex (available over the counter): 600 mg tablet: take 1 tablet orally every 12 hours for 7 days. Dispense fifteen (15). No refill. -- Jeromy Slater
--- NOTE | 2016-10-17 03:38 | ED MAR SUMMARY ---
..... Medication Administration Record [facility] [address] [place] [address] Patient: JAILYN ORTA Visit ID: [id number] 26y, F Weight: 88.4 kg Height/Length: 72 in BMI: 26.5 ALLERGIES: "a cough suppressant" Given 19:10/16/2016 Leeann Lutz, RCatrachoN. Medication Administered: TORADOL [IM] (KETOROLAC TROMETHAMINE), Dose: 60 mg IM. Medication Ordered: Toradol IM 60 mg (NOW). Given 19:10/16/2016 Leeann Lutz, R.N. Medication Administered: LORTAB [PO] (HYDROCODONE-APAP), Dose: 1 tab 5/325 mg Tablets PO. Medication Ordered: Lortab PO 5-325 mg (NOW).
--- NOTE | 2016-10-17 03:38 | ED MED RECONCILIATION SUMMARY ---
Patient: JAILYN ORTA Medication Reconciliation Report [facility] VisitID: [id number] [address] [place] [address] 26y, F Registration Date/Time: 10/16/2016 Weight: 88.4 kg Height/Length: 72 in. BMI: 26.5 ALLERGIES: "a cough suppressant" The patient's Home Medications are listed below: NONE. The source(s) of the original Home Medication information: Not obtained. The following Medications were given to the patient in the Emergency Department: Toradol [IM] IM 60 mg, administered: 10/16/2016 7:14:00 PM Lortab [PO] PO 1 tab, administered: 10/16/2016 7:14:00 PM The following Medications were prescribed to the patient: Motrin IB 200 mg (available over the counter): take 3 orally every 6 hours as needed for pain -- Jeromy Slater Tylenol with Codeine Tylenol #3 (30 mg / 300 mg) : take 1 tablet orally. Dispense five (5). No refill. Substitution is permissible.(PO at HS PRN for cough and body aches.) -- Jeromy Slater Mucinex (available over the counter): 600 mg tablet: take 1 tablet orally every 12 hours for 7 days. Dispense fifteen (15). No refill. -- Jeromy Slater
== END 2016-10-16 19:18 | disposition home or self-care (01) ==
LOC: ED SRH 18:27
DX: J06.9 Acute upper respiratory infection, unspecified (principal); G44.209 Tension-type headache, unspecified, not intractable